=== PATIENT | male | born 1960 | race Two or more races ===

== ENCOUNTER 2024-08-20 10:01 | Outpatient (CLI) | payer OTHER | END 2024-08-20 10:02 | disposition home or self-care (01) | LOC: NUCLEAR 10:01 | PROVIDERS: ATTEND Internal Medicine Cardiovascular Disease | DX: I20.1 Angina pectoris with documented spasm (principal) ==

== ENCOUNTER 2025-07-11 14:20 | Emergency (ER) | payer OTHER ==
[~2025-07-11] VITALS: Ht 170.2 cm; Wt 69.9 kg
[2025-07-11] MEDS ORDERED: METFORMIN HCL1000 M2 PO (14:54)
[2025-07-11] MEDS ORDERED: ZESTRIL10 M1 PO (14:55)
[2025-07-11] MEDS ORDERED: STIOLTO RESPIMAT4 G2 IH (14:55)
[2025-07-11] MEDS ORDERED: ZETIA10 MG PO (14:55)
[2025-07-11] MEDS ORDERED: TOPROL XL25 M1 PO (14:56)
[2025-07-11] MEDS ORDERED: AMLODIPINE-OLM1 EAC2 PO (14:56)
[2025-07-11] MEDS ORDERED: EZALLOR SPRINKL10 MG (14:56)
[2025-07-11] MEDS ORDERED: FENOFIBRATE160 MG PO (14:56)
[2025-07-11] MEDS ORDERED: GLIMEPIRIDE2 MG (14:57)
[2025-07-11] MEDS ORDERED: ADULT LOW DOSE81 M1 PO (14:57)
[2025-07-11] MEDS ORDERED: SYNTHROID88 MCG PO (14:57)
[2025-07-11] MEDS ORDERED: MORPHINE SULFATE 4 MG/ML CARTRIDGE IV STA (15:19)
[2025-07-11] MEDS ORDERED: ASPIRIN 81 MG TAB.CHEW PO STA ×2 (15:19→17:04)
[2025-07-11] MEDS ORDERED: NITROGLYCERIN 50MG IN NSS (KIT INCLUYE LINEA) IV STA (15:20)
[2025-07-11 15:38] LABS: BASO % 0.5 % (0.1-1.2); EOS # 0.29 (0.04-0.54); EOS % 3.1 % (0.7-7.0); LYMPH # 2.39 (1.18-3.74); LYMPH % 25.5 % (19.3-53.1); MEAN PLATELET VOLUME 11.50 fl (9.4-12.4); MONO # 0.52 (0.24-0.82); MONO % 5.5 % (4.7-12.5); NEUT # 6.10 (1.56-6.13); NEUT % 65.2 % (34.0-71.1); RED CELL DISTRIBUTION WIDTH 13.6 % (11.6-14.4)
[2025-07-11 15:57] LABS: INR 1.0
[2025-07-11 16:09] LABS: URINE APPEARANCE Clear; URINE BILIRRUBIN Negative (NEGATIVE); URINE BLOOD Negative; URINE COLOR Yellow; URINE GLUCOSE Negative (NEGATIVE); URINE LEUKOCYTE Negative; URINE NITRATE Negative; URINE PROTEIN Trace (NEGATIVE); URINE UROBILINOGEN 1.0 E.U./dl
[2025-07-11 16:13] LABS: URINE EPITHELIAL CELLS 2.1 uL (0.0-38.8)
[2025-07-11 16:18] LABS: URINE BACTERIA 1.1 uL (0.0-1933); URINE CAST 0.43 uL (0.0-1.40); URINE KETONE 40 (NEGATIVE); URINE RBC 1.6 uL (0.0-20.8); URINE WBC 1.5 uL (0.0-23.2)
[2025-07-11 16:22] LABS: ALT/SGPT 38.0 U/L (12-78); AST/SGOT 25.0 U/L (15-37); BILIRUBIN TOTAL 1.0 mg/dL (0.3-1.2); BUN CREA RATIO 23.0 (7.0-25.0); CREATININE SERUM 0.62 mg/dL (0.70-1.30); GFR 130.6; GLOBULINA 3.6 G/DL (2.4-3.5); GLUCOSE FASTING 135.0 mg/dL (65-100); OSMOLALITY SERUM 284.0 MOSM/KG (275-295)
[2025-07-11 16:27] LABS: ABG PH 7.417 (7.35-7.45); BICARBONATE 20.0 mmol/l (23-25); o2 21 %
[2025-07-11 16:28] LABS: ABG PO2 104.5 mmHg (80-100)
[2025-07-11] MEDS ORDERED: CLOPIDOGREL BISULFATE 75 MG TABLET PO STA (19:39)
== END 2025-07-11 23:31 | disposition designated cancer center or children's hospital (05) ==
LOC: ER 15:33
PROVIDERS: General Practice
DX: R07.89 Other chest pain (principal); I21.4 Non-ST elevation (NSTEMI) myocardial infarction